=== PATIENT | male | born 1970 | race Caucasian/White ===

== ENCOUNTER 2025-06-11 00:30 | Emergency (ER) | payer SELFPAY ==
[~2025-06-11] VITALS: Ht 170.2 cm; Wt 73.0 kg
[2025-06-11 00:43] VITALS: O2SAT 100
[2025-06-11 03:20] LABS: BASOPHILS % 1.0 % (0.0-2.0); EOSINOPHILS % 1.2 % (0.0-5.0); HEMATOCRIT. 42.8 % (42.0-52.0); HEMOGLOBIN. 14.4 g/dL (14.0-18.0); LYMPHOCYTES % 30.2 % (20.0-50.0); MEAN PLATELET VOLUME 8.1 fl (7.4-10.4); MONOCYTES % 11.1 % (2.0-8.0); NEUTROPHILS % 56.5 % (40.0-76.0); PLATELET 255 x1000/uL (130-400); RED BLOOD CELL COUNT 4.84 mill/uL (4.7-6.1); RED CELL DISTRIBUTION WIDTH 12.8 % (11.6-14.6)
[2025-06-11] MEDS: IBUPROFEN 600MG TABLET PO ONE (03:20)
[2025-06-11 03:39] LABS: CREATININE 0.7 mg/dL (0.6-1.3); UREA NITROGEN BLOOD 5 mg/dL (9-23)
[2025-06-11 03:40] LABS: TROPONIN I HIGH SENSITIVITY < 4 ng/L (3.0-53)
[2025-06-11 03:41] LABS: ASPARTATE AMINOTRANSFERASE 21 IU/L (<34); BILIRUBIN DIRECT 0.2 mg/dL (<=3.0); BILIRUBIN TOTAL 0.7 mg/dL (0.1-1.0)
[2025-06-11 03:42] LABS: PROTEIN TOTAL 7.6 g/dL (6.0-8.3)
[2025-06-11] MEDS ORDERED: IBUP-1455 MT (04:33)
[2025-06-11] MEDS ORDERED: FAMO40TA7 MT (04:33)
[2025-06-11 04:47] VITALS: BP 127/81; PULSE 76; RESP 18; TEMP 36.7; O2SAT 100
== END 2025-06-11 04:47 | disposition home or self-care (01) ==
LOC: ER 00:30
DX: R07.81 Pleurodynia (principal); R07.89 Other chest pain; R74.8 Abnormal levels of other serum enzymes; R20.0 Anesthesia of skin; E11.42 Type 2 diabetes mellitus with diabetic polyneuropathy; E11.65 Type 2 diabetes mellitus with hyperglycemia; I45.4 Nonspecific intraventricular block; I47.19 Other supraventricular tachycardia
CPT/HCPCS: 36415; 71101; 80048; 80076; 84484; 85025; 93005; 99285